=== PATIENT | female | born 1955 | race Caucasian/White ===

== ENCOUNTER → 2017-05-30 | Outpatient (CLI) | payer MEDICARE ==
--- NOTE | 2017-06-02 09:05 | MM ---
Reason for exam: screening (asymptomatic). Last mammogram was performed 1 year and 6 months ago. History: Patient is postmenopausal. Family history of breast cancer in maternal grandmother at age 80. Physical Findings: A clinical breast exam by your physician is recommended on an annual basis and results should be correlated with mammographic findings. MG 3D Screening Mammo W/Cad Bilateral CC and MLO view(s) were taken. Prior study comparison: November 28, 2015, bilateral MG 3d screening mammo w/cad. July 08, 2011, bilateral digital screening mammo w/CAD. The breast tissue is heterogeneously dense. This may lower the sensitivity of mammography. There is a stable round circumscribed right lower inner quadrant mass from 2015 and decreased in size from 2011. No suspicious abnormality. ASSESSMENT: Benign, BI-RAD 2 RECOMMENDATION: Routine screening mammogram of both breasts in 1 year.
== END | disposition home or self-care (01) ==
LOC: RADMAMWWP 12:26
PROVIDERS: ATTEND Family Medicine
DX: Z12.31 Encounter for screening mammogram for malignant neoplasm of breast (principal)
CPT/HCPCS: 77063; 77067

== ENCOUNTER → 2017-08-27 | Outpatient (CLI) | payer MEDICARE ==
--- NOTE | 2017-08-28 08:11 | MR ---
Thoracic spine MRI with and without contrast HISTORY: Mid back pain, G 35 Multiplanar multisequence and postcontrast images obtained through the thoracic spine following 5.5 c c Gadavist IV. Correlation to CT chest 03/16/2013 Thoracic vertebral bodies show preserved height and alignment. Endplate discogenic marrow signal vega ge is present at multiple levels. There is multilevel spondylosis. Loss of disc height signal at inte rvertebral levels is compatible with disc desiccation and degenerative disc disease. There is no sign ificant foraminal encroachment or spinal stenosis, mild multilevel disc bulges are minimal. Thoracic cord signal is normal. There is no abnormal enhancement following contrast administration. IMPRESSION: Mild degenerative disc disease.
== END | disposition home or self-care (01) ==
LOC: RADMRIMAIN 20:42
PROVIDERS: ATTEND Nurse Practitioner Family
DX: M51.34 Other intervertebral disc degeneration, thoracic region (principal); G35 Multiple sclerosis
CPT/HCPCS: 82565; 72157; A9581

== ENCOUNTER 2018-09-06 10:57 | Emergency (ER) | payer MEDICARE ==
[2018-09-06 11:04] VITALS: BP 136/83; PULSE 95; RESP 18; TEMP 97.6
[2018-09-06] MEDS ORDERED: LORazepam 2 MG/ML INJ IV STA (11:43)
[2018-09-06] MEDS ORDERED: SODIUM CHLORIDE 0.9% 500 ML 500 ML IV STA (11:44)
--- NOTE | 2018-09-06 11:55 | ED ---
General Adult HPI - General Chief complaint: Dizziness Stated complaint: facial numbness/lightheaded Time Seen by Provider: 09/06/18 11:00 Source: patient, RN notes reviewed Mode of arrival: wheelchair Limitations: no limitations - History of Present Illness Initial comments: This is a 62-year-old female who presents emergency department with past medical history significant for anxiety. Patient states her boyfriend sleeping on a fishing trip tomorrow for 3 days and ever since she found out about it she has been very anxious. Patient states she's been anxious since Friday she had multiple panic attacks since then today she woke up and felt very dizzy and go she has a history of dizziness and is taking Antivert she thought it was worse and wanted to come and get checked out at the emergency department. Patient also states she's been having some blurred vision of the left eye and she does have a history of MS and has had blurred vision with EMS in the past. Patient states however she did just have eye doctor appointment on Friday. Patient denies any pain anywhere. Patient denies any palpitations patient denies any shortness breath difficulty breathing. Patient has any fever chills. Patient denies any vomiting or diarrhea. Patient denies any dysuria hematuria or frequency. - Related Data Home Medications Medication Instructions Recorded Confirmed Escitalopram [Lexapro] 20 mg PO DAILY 05/05/15 09/06/18 ALPRAZolam [Xanax] 0.25 - 0.5 mg PO BID PRN 09/06/18 09/06/18 ALPRAZolam [Xanax] 0.5 mg PO DAILY 09/06/18 09/06/18 Acetaminophen Tab [Tylenol Tab] 1,000 mg PO SUMO PRN 09/06/18 09/06/18 Ibuprofen [Motrin] 800 mg PO Q6H PRN 09/06/18 09/06/18 Interferon Beta-1A [Avonex 30 MCG 30 mcg IM BENOIT 09/06/18 09/06/18 Pen] Meclizine [Antivert] 25 mg PO DAILY 09/06/18 09/06/18 Ondansetron Odt [Zofran Odt] 4 mg PO Q12HR PRN 09/06/18 09/06/18 Sennosides [Senna] 8.6 mg PO HS 09/06/18 09/06/18 amLODIPine BESYLATE/BENAZEPRIL 1 cap PO HS 09/06/18 09/06/18 [Lotrel 10-40 MG] Allergies Allergy/AdvReac Type Severity Reaction Status Date / Time No Known Allergies Allergy Verified 09/06/18 11:30 Review of Systems ROS Statement: Those systems with pertinent positive or pertinent negative responses have been documented in the HPI. ROS Other: All systems not noted in ROS Statement are negative. Past Medical History Past Medical History: Hypertension, Neurologic Disorder Additional Past Medical History / Comment(s): HTN, MS History of Any Multi-Drug Resistant Organisms: None Reported Past Surgical History: Tonsillectomy Past Psychological History: Anxiety Smoking Status: Current every day smoker Past Alcohol Use History: Rare Past Drug Use History: None Reported General Exam - General Exam Comments Initial Comments: GENERAL: Patient is well-developed and well-nourished. Patient is nontoxic and well- hydrated and is in mild distress. ENT: Neck is soft and supple. No significant lymphadenopathy is noted. Oropharynx is clear. Moist mucous membranes. Neck has full range of motion without eliciting any pain. EYES: The sclera were anicteric and conjunctiva were pink and moist. Extraocular movements were intact and pupils were equal round and reactive to light. Eyelid s were unremarkable. PULMONARY: Unlabored respirations. Good breath sounds bilaterally. No audible rales rhonchi or wheezing was noted. CARDIOVASCULAR: There is a regular rate and rhythm without any murmurs gallops or rubs. ABDOMEN: Soft and nontender with normal bowel sounds. No palpable organomegaly was noted. There is no palpable pulsatile mass. SKIN: Skin is clear with no lesions or rashes and otherwise unremarkable. NEUROLOGIC: Patient is alert and oriented x3. Cranial nerves II through XII are grossly intact. Motor and sensory are also intact. Normal speech, volume and content. Symmetrical smile. MUSCULOSKELETAL: Normal extremities with adequate strength and full range of motion. No lower extremity swelling or edema. No calf tenderness. LYMPHATICS: No significant lymphadenopathy is noted PSYCHIATRIC: Patient is moderately anxious Limitations: no limitations Course Vital Signs 09/06/18 11:00 Temperature 97.6 F Pulse Rate 95 Respiratory 18 Rate Blood Pressure 136/83 O2 Sat by Pulse 98 Oximetry Medical Decision Making - Medical Decision Making EKG shows normal sinus rhythm at 91 bpm MT interval 244 Avelar is 66 QT interval 362 QTC is 445. Patient's EKG shows no ST segment elevation or depression or T wave abnormalities are noted. Chest x-ray shows no acute abnormality - Lab Data Result diagrams: 09/06/18 11:33 09/06/18 11:33 Lab Results 09/06/18 09/06/18 09/06/18 Range/Units 11:33 11:33 12:06 WBC 6.2 (3.8-10.6) k/uL RBC 6.19 H (3.80-5.40) m/uL Hgb 16.3 H (11.4-16.0) gm/dL Hct 51.0 H (34.0-46.0) % MCV 82.4 (80.0-100.0) fL MCH 26.4 (25.0-35.0) pg MCHC 32.0 (31.0-37.0) g/dL RDW 13.5 (11.5-15.5) % Plt Count 253 (150-450) k/uL Neutrophils % 69 % Lymphocytes % 23 % Monocytes % 5 % Eosinophils % 1 % Basophils % 1 % Neutrophils # 4.3 (1.3-7.7) k/uL Lymphocytes # 1.4 (1.0-4.8) k/uL Monocytes # 0.3 (0-1.0) k/uL Eosinophils # 0.0 (0-0.7) k/uL Basophils # 0.1 (0-0.2) k/uL Sodium 140 (137-145) mmol/L Potassium 4.5 (3.5-5.1) mmol/L Chloride 105 (98-107) mmol/L Carbon Dioxide 26 (22-30) mmol/L Anion Gap 9 mmol/L BUN 13 (7-17) mg/dL Creatinine 0.65 (0.52-1.04) mg/dL Est GFR (CKD-EPI)AfAm >90 (>60 ml/min/1.73 sqM) Est GFR (CKD-EPI)NonAf >90 (>60 ml/min/1.73 sqM) Glucose 90 (74-99) mg/dL Calcium 10.0 (8.4-10.2) mg/dL Total Bilirubin 0.5 (0.2-1.3) mg/dL AST 23 (14-36) U/L ALT 20 (9-52) U/L Alkaline Phosphatase 99 (38-126) U/L Total Protein 7.9 (6.3-8.2) g/dL Albumin 4.7 (3.5-5.0) g/dL Urine Color Yellow Urine Appearance Clear (Clear) Urine pH 6.0 (5.0-8.0) Ur Specific [place] 1.012 (1.001-1.035) Urine Protein Negative (Negative) Urine Glucose (UA) Negative (Negative) Urine Ketones Negative (Negative) Urine Blood Negative (Negative) Urine Nitrite Negative (Negative) Urine Bilirubin Negative (Negative) Urine Urobilinogen <2.0 (<2.0) mg/dL Ur Leukocyte Esterase Negative (Negative) Disposition Clinical Impression: Anxiety, Lightheaded Disposition: HOME SELF-CARE Condition: Good Instructions (If sedation given, give patient instructions): Lightheadedness ( ED), Anxiety (ED) Is patient prescribed a controlled substance at d/c from ED?: No Referrals: Mumtaz Armstrong MD [Primary Care Provider] - 1-2 days Time of Disposition: 12:43
[2018-09-06 12:05] LABS: Basophils # (A) 0.1 k/uL (0-0.2); Basophils % (A) 1 %; Eosinophils % (A) 1 %; HGB 16.3 gm/dL (11.4-16.0); Lymphocytes # (A) 1.4 k/uL (1.0-4.8); Lymphocytes % (A) 23 %; MCH 26.4 pg (25.0-35.0); MCV 82.4 fL (80.0-100.0); Mean Platelet Volume 7.9; Monocytes # (A) 0.3 k/uL (0-1.0); Monocytes % (A) 5 %; Neutrophils # (A) 4.3 k/uL (1.3-7.7); Neutrophils % (A) 69 %; Platelet Count 253 k/uL (150-450); RBC 6.19 m/uL (3.80-5.40); RDW 13.5 % (11.5-15.5); WBC 6.2 k/uL (3.8-10.6)
[2018-09-06 12:16] LABS: ALT 20 U/L (9-52); AST 23 U/L (14-36); Albumin 4.7 g/dL (3.5-5.0); Alkaline Phosphatase 99 U/L (38-126); Anion Gap 9 mmol/L; Blood Urea Nitrogen 13 mg/dL (7-17); Carbon Dioxide 26 mmol/L (22-30); Chloride 105 mmol/L (98-107); Glucose 90 mg/dL (74-99); Potassium 4.5 mmol/L (3.5-5.1); Sodium 140 mmol/L (137-145); Total Bilirubin 0.5 mg/dL (0.2-1.3); Total Protein 7.9 g/dL (6.3-8.2)
[2018-09-06 12:16] LABS: Appearance,Urine Clear (Clear); Bilirubin,Urine Negative (Negative); Blood,Urine Negative (Negative); Color,Urine Yellow; Glucose,Urine (UA) Negative (Negative); Ketones,Urine Negative (Negative); Leukocyte Esterase,Urine Negative (Negative); Nitrite,Urine Negative (Negative); Protein,Urine Negative (Negative); Specific Gravity,Urine 1.012 (1.001-1.035); Urobilinogen,Urine <2.0 mg/dL (<2.0)
--- NOTE | 2018-09-06 12:38 | XR ---
EXAMINATION TYPE: XR chest 2V DATE OF EXAM: 09/06/2018 HISTORY: Weakness. REFERENCE: NONE. FINDINGS: The lungs are overinflated but clear. Pleural spaces are clear. The heart is not enlarged. IMPRESSION: COPD.
== END 2018-09-06 14:06 | disposition home or self-care (01) ==
LOC: EC 10:57
DX: F41.9 Anxiety disorder, unspecified (principal); R42 Dizziness and giddiness; J44.9 Chronic obstructive pulmonary disease, unspecified; I10 Essential (primary) hypertension; F17.200 Nicotine dependence, unspecified, uncomplicated; Z79.899 Other long term (current) drug therapy
CPT/HCPCS: 36415; 93005; 80053; 85025; 81003; 71046; 99284; 96374; J2060

== ENCOUNTER 2020-03-06 15:45 | Inpatient (IN) | payer MEDICARE ==
[2020-03-06] MEDS ORDERED: ALBUTEROL NEBULIZED 2.5 MG/3 ML INHALATION STA (16:01)
[2020-03-06] MEDS ORDERED: IPRATROPIUM-ALBUTEROL 3 ML NEB INHALATION STA (16:02)
--- NOTE | 2020-03-06 16:05 | ED ---
General Adult HPI - General Chief complaint: Shortness of Breath Stated complaint: JASON Time Seen by Provider: 03/06/20 15:45 Source: patient, EMS, RN notes reviewed, old records reviewed Mode of arrival: EMS Limitations: no limitations - History of Present Illness Initial comments: This a 64-year-old female presents emergency Department with a past history of COPD. According to EMS the patient was found on the ground quite cyanotic and he immediately put her on BiPAP and she slowly came around and had bilateral diffuse wheezing patient was given 3 albuterol treatments and [address] Patient's also given Solu-Medrol. On arrival patient was feeling considerably better. Patient denies any chest pain or palpitations. Patient denies any recent fever chills or cough per patient denies any abdominal pain. Patient denies any headache. Patient states she does not remember what was going on prior to her being found on the ground. According to EMS it sounded like the patient must at some sort of syncopal episode at some point - Related Data Home Medications Medication Instructions Recorded Confirmed Escitalopram [Lexapro] 20 mg PO DAILY 05/05/15 03/06/20 ALPRAZolam [Xanax] 0.5 mg PO HS PRN 09/06/18 03/06/20 ALPRAZolam [Xanax] 0.5 mg PO TID 09/06/18 03/06/20 Acetaminophen Tab [Tylenol Tab] 1,000 mg PO DAILY PRN 09/06/18 03/06/20 Ibuprofen [Motrin] 800 mg PO Q6H PRN 09/06/18 03/06/20 Meclizine [Antivert] 25 mg PO TID PRN 09/06/18 03/06/20 Ondansetron Odt [Zofran Odt] 4 mg PO Q12HR PRN 09/06/18 03/06/20 amLODIPine BESYLATE/BENAZEPRIL 1 cap PO HS 09/06/18 03/06/20 [Lotrel 10-40 MG] Budesonide/Formoterol Fumarate 1 puff INHALATION RT-BID 03/06/20 03/06/20 [Symbicort 160-4.5 Mcg Inhaler] Furosemide [Lasix] 20 mg PO DAILY 03/06/20 03/06/20 Metoprolol Tartrate [Lopressor] 25 mg PO DAILY 03/06/20 03/06/20 OLANZapine [ZyPREXA] 10 mg PO DAILY 03/06/20 03/06/20 Omeprazole 20 mg PO DAILY 03/06/20 03/06/20 Teriflunomide [Aubagio] 7 mg PO DAILY 03/06/20 03/06/20 Allergies Allergy/AdvReac Type Severity Reaction Status Date / Time No Known Allergies Allergy Verified 09/06/18 11:30 Review of Systems ROS Statement: Those systems with pertinent positive or pertinent negative responses have been documented in the HPI. ROS Other: All systems not noted in ROS Statement are negative. Past Medical History Past Medical History: Hypertension, Neurologic Disorder Additional Past Medical History / Comment(s): HTN, MS History of Any Multi-Drug Resistant Organisms: None Reported Past Surgical History: Tonsillectomy Past Psychological History: Anxiety Smoking Status: Current every day smoker Past Alcohol Use History: Rare Past Drug Use History: None Reported General Exam - General Exam Comments Initial Comments: GENERAL: Patient is well-developed and well-nourished. Patient is nontoxic and well- hydrated and is in mild distress. ENT: Neck is soft and supple. No significant lymphadenopathy is noted. Oropharynx is clear. Moist mucous membranes. Neck has full range of motion without eliciting any pain. EYES: The sclera were anicteric and conjunctiva were pink and moist. Extraocular movements were intact and pupils were equal round and reactive to light. Eyelids were unremarkable. PULMONARY: Diffuse expiratory wheezing CARDIOVASCULAR: There is a regular rate and rhythm without any murmurs gallops or rubs. ABDOMEN: Soft and nontender with normal bowel sounds. SKIN: Skin is clear with no lesions or rashes and otherwise unremarkable. NEUROLOGIC: Patient is alert and oriented x3. Cranial nerves II through XII are grossly intact. Motor and sensory are also intact. Normal speech, volume and content. Symmetrical smile. MUSCULOSKELETAL: Normal extremities with adequate strength and full range of motion. LYMPHATICS: No significant lymphadenopathy is noted PSYCHIATRIC: Normal psychiatric evaluation. Limitations: no limitations Course Vital Signs 03/06/20 03/06/20 03/06/20 15:47 15:52 16:01 Temperature 96.8 F L Pulse Rate 102 H 92 104 H Respiratory 18 20 35 H Rate Blood Pressure 111/70 O2 Sat by Pulse 98 98 Oximetry 03/06/20 03/06/2003/06/20 16:15 16:25 16:52 Temperature Pulse Rate 91 95 Respiratory 22 33 H 20 Rate Blood Pressure 98/74 O2 Sat by Pulse 98 Oximetry Medical Decision Making - Medical Decision Making EKG shows a normal sinus rhythm at 96 bpm W[place] interval is on a 46 QRS is 68 QT interval 344 QTC is 447. Patient's EKG shows no ST segment elevation or depression. Chest x-ray shows no acute abnormality. Patient received 3 treatments of albuterol and Atrovent in the emergency department. Patient improved but she remained on BiPAP. I spoke with Dr. Sung agreed to admit the patient admitted the patient wrote admitting orders. I consult pulmonary. Patient has an elevated lactic acid and I believe it secondary to hypoxia because when EMS found her she was at 60% pulse ox. - Lab Data Result diagrams: 03/06/20 16:10 03/06/20 16:10 Lab Results 03/06/20 03/06/20 03/06/20 Range/Units 16:10 16:10 16:10 WBC 11.8 H (3.8-10.6) k/uL RBC 5.80 H (3.80-5.40) m/uL Hgb 15.5 (11.4-16.0) gm/dL Hct 49.8 H (34.0-46.0) % MCV 85.9 (80.0-100.0) fL MCH 26.7 (25.0-35.0) pg MCHC 31.0 (31.0-37.0) g/dL RDW 14.2 (11.5-15.5) % Plt Count 249 (150-450) k/uL MPV 9.3 Neutrophils % 87 % Lymphocytes % 8 % Monocytes % 2 % Eosinophils % 1 % Basophils % 1 % Neutrophils # 10.2 H (1.3-7.7) k/uL Lymphocytes # 1.0 (1.0-4.8) k/uL Monocytes # 0.3 (0-1.0) k/uL Eosinophils # 0.2 (0-0.7) k/uL Basophils # 0.1 (0-0.2) k/uL PT 9.4 (9.0-12.0) sec INR 0.9 (<1.2) APTT 18.3 L (22.0-30.0) sec Sodium 134 L (137-145) mmol/L Potassium 4.6 (3.5-5.1) mmol/L Chloride 94 L (98-107) mmol/L Carbon Dioxide 25 (22-30) mmol/L Anion Gap 15 mmol/L BUN 18 H (7-17) mg/dL Creatinine 1.67 H (0.52-1.04) mg/dL Est GFR (CKD-EPI)AfAm 37 (>60 ml/min/1.73 sqM) Est GFR (CKD-EPI)NonAf 32 (>60 ml/min/1.73 sqM) Glucose 166 H (74-99) mg/dL Plasma Lactic Acid Alfonso (0.7-2.0) mmol/L Calcium 10.0 (8.4-10.2) mg/dL Magnesium 2.0 (1.6-2.3) mg/dL Total Bilirubin 0.4 (0.2-1.3) mg/dL AST 36 (14-36) U/L ALT 21 (4-34) U/L Alkaline Phosphatase 99 (38-126) U/L Troponin I (0.000-0.034) ng/mL Total Protein 8.9 H (6.3-8.2) g/dL Albumin 4.9 (3.5-5.0) g/dL Coronavirus (PCR) (Not Detectd) 03/06/20 03/06/20 03/06/20 Range/Units 16:10 16:10 17:10 WBC (3.8-10.6) k/uL RBC (3.80-5.40) m/uL Hgb (11.4-16.0) gm/dL Hct (34.0-46.0) % MCV (80.0-100.0) fL MCH (25.0-35.0) pg MCHC (31.0-37.0) g/dL RDW (11.5-15.5) % Plt Count (150-450) k/uL MPV Neutrophils % % Lymphocytes % % Monocytes % % Eosinophils % % Basophils % % Neutrophils # (1.3-7.7) k/uL Lymphocytes # (1.0-4.8) k/uL Monocytes # (0-1.0) k/uL Eosinophils # (0-0.7) k/uL Basophils # (0-0.2) k/uL PT (9.0-12.0) sec INR (<1.2) APTT (22.0-30.0) sec Sodium (137-145) mmol/L Potassium (3.5-5.1) mmol/L Chloride (98-107) mmol/L Carbon Dioxide (22-30) mmol/L Anion Gap mmol/L BUN (7-17) mg/dL Creatinine (0.52-1.04) mg/dL Est GFR (CKD-EPI)AfAm (>60 ml/min/1.73 sqM) Est GFR (CKD-EPI)NonAf (>60 ml/min/1.73 sqM) Glucose (74-99) mg/dL Plasma Lactic Acid Alfonso 4.7 H* (0.7-2.0) mmol/L Calcium (8.4-10.2) mg/dL Magnesium (1.6-2.3) mg/dL Total Bilirubin (0.2-1.3) mg/dL AST (14-36) U/L ALT (4-34) U/L Alkaline Phosphatase (38-126) U/L Troponin I <0.012 (0.000-0.034) ng/mL Total Protein (6.3-8.2) g/dL Albumin (3.5-5.0) g/dL Coronavirus (PCR) Not Detected (Not Detectd) Critical Care Time Critical Care Time: Yes Total Critical Care Time: 35 Disposition Clinical Impression: Acute exacerbation of chronic obstructive pulmonary disease Disposition: ADMITTED IP TO THIS HOSP Referrals: Mumtaz Armstrong MD [Primary Care Provider] - 1-2 days Time of Disposition: 18:02
[2020-03-06 16:19] LABS: Basophils # (A) 0.1 k/uL (0-0.2); Basophils % (A) 1 %; Eosinophils # (A) 0.2 k/uL (0-0.7); Eosinophils % (A) 1 %; HCT 49.8 % (34.0-46.0); HGB 15.5 gm/dL (11.4-16.0); Lymphocytes % (A) 8 %; MCH 26.7 pg (25.0-35.0); MCV 85.9 fL (80.0-100.0); Mean Platelet Volume 9.3; Monocytes # (A) 0.3 k/uL (0-1.0); Monocytes % (A) 2 %; Neutrophils # (A) 10.2 k/uL (1.3-7.7); Neutrophils % (A) 87 %; Platelet Count 249 k/uL (150-450); RDW 14.2 % (11.5-15.5); WBC 11.8 k/uL (3.8-10.6)
[2020-03-06 16:29] LABS: Albumin 4.9 g/dL (3.5-5.0); Potassium 4.6 mmol/L (3.5-5.1); Total Bilirubin 0.4 mg/dL (0.2-1.3); Total Protein 8.9 g/dL (6.3-8.2)
[2020-03-06 16:43] LABS: INR 0.9 (<1.2); Prothrombin Time 9.4 sec (9.0-12.0)
[2020-03-06 16:56] LABS: Partial Thromboplastin Time 18.3 sec (22.0-30.0)
--- NOTE | 2020-03-06 17:27 | XR ---
EXAMINATION TYPE: XR chest 1V portable DATE OF EXAM: 03/06/2020 COMPARISON: Prior chest x-ray 09/06/2018 HISTORY: Difficulty breathing TECHNIQUE: Single frontal view of the chest is obtained. FINDINGS: There is no focal air space opacity, pleural effusion, or pneumothorax seen. The cardiac silhouette size is within normal limits. Patient is rotated. There are overlying cardiac leads. The osseous structures are intact. IMPRESSION: No acute process.
[2020-03-06] MEDS: IPRATROPIUM 0.5 MG/2.5 ML NEBU INHALATION SCH (18:49)
[2020-03-06] MEDS ORDERED: ALPRAZolam 0.5 MG TAB PO STA (18:51)
[2020-03-06] MEDS: NICOTINE 21MG/24HR PATCH TRANSDERM SCH (19:01)
[2020-03-06] MEDS ORDERED: ONDANSETRON ODT 4 MG TAB PO PRN (20:01)
[2020-03-06 21:22] LABS: Appearance,Urine Clear (Clear); Bilirubin,Urine Negative (Negative); Blood,Urine Negative (Negative); Color,Urine Yellow; Glucose,Urine (UA) Negative (Negative); Ketones,Urine Negative (Negative); Leukocyte Esterase,Urine Negative (Negative); Nitrite,Urine Negative (Negative); Protein,Urine Negative (Negative); Specific Gravity,Urine 1.011 (1.001-1.035); Urobilinogen,Urine <2.0 mg/dL (<2.0)
[2020-03-07] MEDS: ALPRAZolam 0.5 MG TAB PO SCH ×4 (00:14→21:24)
[2020-03-07] MEDS: methylPREDNISolone SOD SUCCI 125 MG/2 ML VIAL IV SCH ×3 (00:14→10:53)
[2020-03-07] MEDS: IPRATROPIUM-ALBUTEROL 3 ML NEB INHALATION PRN ×2 (05:12→11:55)
[2020-03-07] MEDS: PANTOPRAZOLE 40 MG TABLET PO SCH (05:23)
--- NOTE | 2020-03-07 07:38 | US ---
EXAMINATION TYPE: US kidneys/renal and bladder DATE OF EXAM: 03/07/2020 COMPARISON: NONE CLINICAL HISTORY: assess for CK D. Abnormal labs EXAM MEASUREMENTS: Right Kidney: 10.1 x 4.4 x 4.5 cm Left Kidney: 10.1 x 4.5 x 4.2 cm Right Kidney: Appeared wnl Left Kidney: Appeared wnl Bladder: wnl Bilateral Jets seen: Only left jet visualized There is no evidence for hydronephrosis at this point in time. No nephrolithiasis is seen. No paxton s are identified. The urinary bladder is anechoic. Bilateral ureteral jets are seen. Cortical medul aurelia differentiation preserved. Cortical thickness preserved. IMPRESSION: No abnormality noted.
[2020-03-07] MEDS ORDERED: SYMBICORT 160-4.5 MCG INHALER INHALATION SCH (08:00)
[2020-03-07] MEDS: IPRATROPIUM 0.5 MG/2.5 ML NEBU INHALATION SCH ×2 (08:10→11:56)
[2020-03-07] MEDS: ESCITALOPRAM 20 MG TAB PO SCH (10:46)
[2020-03-07] MEDS: METOPROLOL TARTRATE 25 MG TAB PO SCH (10:52)
[2020-03-07] MEDS: NICOTINE 21MG/24HR PATCH TRANSDERM SCH (10:53)
[2020-03-07] MEDS: OLANZapine 10 MG TAB PO SCH (10:53)
[2020-03-07] MEDS: BUDESONIDE 1 MG/2 ML NEBU INHALATION SCH ×2 (13:48→20:40)
[2020-03-07] MEDS: FORMOTEROL FUMARATE 20 MCG/2 ML NEBU INHALATION SCH ×2 (13:49→20:40)
[2020-03-07] MEDS: TERIFLUNOMIDE 7 MG PO SCH (13:51)
[2020-03-07] MEDS: ENOXAPARIN 40 MG/0.4 ML SYRINGE SQ SCH (13:58)
[2020-03-07] MEDS: IPRATROPIUM-ALBUTEROL 3 ML NEB INHALATION SCH ×2 (15:49→20:40)
[2020-03-07] MEDS: PRAMIPEXOLE 0.5 MG TAB PO SCH ×2 (16:15→21:24)
[2020-03-07] MEDS ORDERED: INSULIN ASPART (NovoLOG) 100 UNIT/ML VIAL SQ SCH (17:30)
--- NOTE | 2020-03-07 19:21 | P.CNPUL ---
History of Present Illness Reason for consult: dyspnea, cough, hypoxemia Chief complaint: Altered mental status History of present illness: This is a 64-year-old female with advanced multiple sclerosis, patient was brought into the hospital after she was found to be unresponsive on medical floo r he was cyanotic, patient placed back on BiPAP with slow improvement in clinical condition have diffuse wheezing as well continue snaps treatment was given in the emergency department, subsequently admitted to the floor, patient was evaluated on medical floor she was currently 5 L oxygen she feels that she is back to baseline, denies any chest pain shortness of breath does have some cough, BiPAP is off, data as up been obtained from the patient that she was smoking in the garage according to her 5 cigarettes were smoked after that she went inside the room and passed out, EMS were notified and brought into hospital for further evaluation, her past history significant for multiple sclerosis m ajor depression anxiety disorder, likely severe COPD, hypertension hypertensive cardiovascular disease, she smokes 1-1/2 pack per day every day Review of Systems All systems: negative Past Medical History Past Medical History: Hypertension, Neurologic Disorder Additional Past Medical History / Comment(s): HTN, MS History of Any Multi-Drug Resistant Organisms: None Reported Past Surgical History: Tonsillectomy Past Psychological History: Anxiety Smoking Status: Current every day smoker Past Alcohol Use History: Rare Past Drug Use History: None Reported Medications and Allergies Home Medications Medication Instructions Recorded Confirmed Type Escitalopram [Lexapro] 20 mg PO DAILY 05/05/15 03/06/20 History ALPRAZolam [Xanax] 0.5 mg PO HS PRN 09/06/18 03/06/20 History ALPRAZolam [Xanax] 0.5 mg PO TID 09/06/18 03/06/20 History Acetaminophen Tab [Tylenol Tab] 1,000 mg PO DAILY PRN 09/06/18 03/06/20 History Ibuprofen [Motrin] 800 mg PO Q6H PRN 09/06/18 03/06/20 History Meclizine [Antivert] 25 mg PO TID PRN 09/06/18 03/06/20 History Ondansetron Odt [Zofran Odt] 4 mg PO Q12HR PRN 09/06/18 03/06/20 History amLODIPine BESYLATE/BENAZEPRIL 1 cap PO HS 09/06/18 03/06/20 History [Lotrel 10-40 MG] Budesonide/Formoterol Fumarate 1 puff INHALATION RT-BID 03/06/20 03/06/20 History [Symbicort 160-4.5 Mcg Inhaler] Furosemide [Lasix] 20 mg PO DAILY 03/06/20 03/06/20 History Metoprolol Tartrate [Lopressor] 25 mg PO DAILY 03/06/20 03/06/20 History OLANZapine [ZyPREXA] 10 mg PO DAILY 03/06/20 03/06/20 History Omeprazole 20 mg PO DAILY 03/06/20 03/06/20 History Teriflunomide [Aubagio] 7 mg PO DAILY 03/06/20 03/06/20 History Allergies Allergy/AdvReac Type Severity Reaction Status Date / Time No Known Allergies Allergy Verified 09/06/18 11:30 Physical Exam Vitals: Vital Signs Temp Pulse Pulse Resp BP BP Pulse Ox 03/07/20 16:07 88 03/07/20 15:52 92 03/07/20 15:31 97.8 F 90 18 110/75 90 L 03/07/20 12:06 87 03/07/20 12:00 84 19 118/70 94 L 03/07/20 11:56 86 03/07/20 08:28 96 03/07/20 08:11 91 03/07/20 08:00 75 18 102/67 95 03/07/20 07:01 18 98 03/07/20 06:30 18 98 03/07/20 05:21 104 H 03/07/20 05:14 96 03/07/20 04:00 98.1 F 96 18 95 03/07/20 02:00 20 03/07/20 01:32 98.0 F 95 20 123/79 93 L 03/06/20 20:00 98 18 93/59 93 L Intake and Output 03/07/20 03/07/20 03/07/20 06:59 14:59 22:59 Intake Total 250 10 Balance 250 10 Intake: IV 10 Invasive Line 1 10 Oral 250 Other: Voiding Method Toilet # Voids 0 0 # Bowel Movements 0 Weight 67.132 kg - Constitutional General appearance: average body habitus, cooperative, disheveled, mild distress - EENT Eyes: EOMI, PERRLA Ears: bilateral: normal - Neck Neck: normal ROM Carotids: bilateral: upstroke normal Thyroid: bilateral: normal size - Respiratory Respiratory: bilateral: diminished - Cardiovascular Rhythm: regular Heart sounds: normal: S1, S2 - Gastrointestinal General gastrointestinal: normal bowel sounds, soft - Integumentary Integumentary: decreased turgor, flushed - Neurologic Neurologic: CNII-XII intact - Musculoskeletal Musculoskeletal: gait normal, generalized weakness - Psychiatric Psychiatric: A&O x's 3, appropriate affect, intact judgment & insight Results - Laboratory Findings CBC and BMP: 03/06/20 16:10 03/06/20 16:10 PT/INR, D-dimer PT 9.4 sec (9.0-12.0) 03/06/20 16:10 INR 0.9 (<1.2) 03/06/20 16:10 Abnormal lab findings: Abnormal Labs 03/06/20 03/06/20 03/06/20 16:10 16:10 16:10 WBC 11.8 H RBC 5.80 H Hct 49.8 H Neutrophils # 10.2 H APTT 18.3 L Sodium 134 L Chloride 94 L BUN 18 H Creatinine 1.67 H Glucose 166 H Plasma Lactic Acid Alfonso Total Protein 8.9 H 03/06/20 03/06/20 16:10 18:58 WBC RBC Hct Neutrophils # APTT Sodium Chloride BUN Creatinine Glucose Plasma Lactic Acid Alfonso 4.7 H* 2.2 H* Total Protein - Diagnostic Findings Chest x-ray: report reviewed (Finding as noted above no acute processes identified), image reviewed Assessment and Plan Assessment: Altered mental status Suspect carbon monoxide poisoning Severe COPD with possible exacerbation History of multiple sclerosis Generalized anxiety disorder Activities smoker one had a half pack per day Plan: Continue oxygen as we will attempt to wean it down slowly in next 12-24 hours Continue bronchodilators monitor observe patient off of steroids antibiotics Patient will need smoking cessation counseling and advice also education about carbon monoxide poisoning Further workup and evaluation pending as per clinical response of the patient Time with Patient: Greater than 30
--- NOTE | 2020-03-07 22:42 | P.HPIM ---
History of Present Illness H&P Date: 03/07/20 Chief Complaint: Short of breath History of presenting complaint: This is a pleasant 64-year-old patient of visiting physicians Dr. Armstrong. Chronic stable medical conditions include hypertension, multiple sclerosis, anxiety depression, hypertension, urinary incontinence. Long-standing smoker. Daughter is at the bedside. Last 2-3 days patient had getting increasingly sh ort of breath. Increasing wheezing. And out of the house to smoke today came back, and the last she remembers sitting on the sofa. She was found on the carpeted floor. She is very cyanotic and hypoxic and as per the EMS pulse ox was 60%. Patient put on a BiPAP in the ER and patient recovered. And after bronchodilators feeling better. Still wheezing. Has not followed with any doctor. No seizure activity was reported. No chest pain. Review of systems: GEN.: Tired EYES: None HEENT: None NECK: None RESPIRATORY: As above CARDIOVASCULAR: None GASTROINTESTINAL: None GENITOURINARY: Urinary incontinence MUSCULOSKELETAL: Joint pains LYMPHATICS: None HEMATOLOGICAL: None PSYCHIATRY: Anxious NEUROLOGICAL: None Past medical history to include: Multiple sclerosis, anxiety, depression, COPD, hypertension, urinary incontinence Social history: Smokes a pack and a half a day for about 49 years. No alcohol. Lives with her boyfriend Physical examination: VITAL SIGNS: 96.8, 1 or 2, 35, 111/70, 98% on BiPAP upon presentation GENERAL: BMI 27.1, propped up in bed, short of breath. EYES: Pupils equal. Conjunctiva normal. HEENT: External appearance of nose and ears normal, oral cavity grossly normal. NECK: JVD not raised; masses not palpable. HEART: First and second heart sounds are normal; no edema. LUNGS: Respiratory rate increased, diminished breath sound prominent expiration and wheezing. ABDOMEN: Soft, nontender, liver spleen not palpable, no masses palpable. PSYCH: [Alert and oriented x3; mood and affect anxious l. NEUROLOGICAL: Cranial nerves grossly intact; no facial asymmetry, power and sensation grossly intact. LYMPHATICS: No lymph nodes palpable in the axilla and neck INVESTIGATIONS, reviewed in the clinical context: White count 11.8 hemoglobin 15.5 platelets 249 potassium 4.6 bun 18 creatinine 1.67 Lactic acid 4.7 Troponin I less than 0.012 Coronavirus P/Cr-not detected EKG tracing personally reviewed by me-normal sinus rhythm, P pulmonale Chest x-ray film personally reviewed by me-no obvious infiltrate. Prominent pulmonary artery Assessment: -Acute severe COPD exacerbation in a current smoker -Acute hypoxic, suspect hypercapnic respiratory failure, POA -Acute metabolic encephalopathy from CO2 narcosis likely on presentation -Chronic nicotine dependence patient active cigarette smoker -Essential hypertension -Chronic urinary incontinence -Anxiety depression not otherwise specified -Abnormal kidney function, rule out the chronic component Plan: Patient be started on nebulized bronchodilators, inhaled and IV steroids. Home medications resumed. DVT prophylaxis. Oxygen 2 toscale down. Pulmonary been consulted. Care was discussed at length with the patient and the daughter the bedside. Smoke cessation counseling: This was done with the patient. Nicotine patch is being given. More than 3 minutes was spent for this Past Medical History Past Medical History: Hypertension, Neurologic Disorder Additional Past Medical History / Comment(s): HTN, MS History of Any Multi-Drug Resistant Organisms: None Reported Past Surgical History: Tonsillectomy Past Psychological History: Anxiety Smoking Status: Current every day smoker Past Alcohol Use History: Rare Past Drug Use History: None Reported Medications and Allergies Home Medications Medication Instructions Recorded Confirmed Type Escitalopram [Lexapro] 20 mg PO DAILY 05/05/15 03/06/20 History ALPRAZolam [Xanax] 0.5 mg PO HS PRN 09/06/18 03/06/20 History ALPRAZolam [Xanax] 0.5 mg PO TID 09/06/18 03/06/20 History Acetaminophen Tab [Tylenol Tab] 1,000 mg PO DAILY PRN 09/06/18 03/06/20 History Ibuprofen [Motrin] 800 mg PO Q6H PRN 09/06/18 03/06/20 History Meclizine [Antivert] 25 mg PO TID PRN 09/06/18 03/06/20 History Ondansetron Odt [Zofran Odt] 4 mg PO Q12HR PRN 09/06/18 03/06/20 History amLODIPine BESYLATE/BENAZEPRIL 1 cap PO HS 09/06/18 03/06/20 History [Lotrel 10-40 MG] Budesonide/Formoterol Fumarate 1 puff INHALATION RT-BID 03/06/20 03/06/20 History [Symbicort 160-4.5 Mcg Inhaler] Furosemide [Lasix] 20 mg PO DAILY 03/06/20 03/06/20 History Metoprolol Tartrate [Lopressor] 25 mg PO DAILY 03/06/20 03/06/20 History OLANZapine [ZyPREXA] 10 mg PO DAILY 03/06/20 03/06/20 History Omeprazole 20 mg PO DAILY 03/06/20 03/06/20 History Teriflunomide [Aubagio] 7 mg PO DAILY 03/06/20 03/06/20 History Allergies Allergy/AdvReac Type Severity Reaction Status Date / Time No Known Allergies Allergy Verified 09/06/18 11:30 Physical Exam Vitals: Vital Signs Temp Pulse Pulse Resp BP BP Pulse Ox 03/07/20 08:28 96 03/07/20 08:11 91 03/07/20 07:01 18 98 03/07/20 06:30 18 98 03/07/20 05:21 104 H 03/07/20 05:14 96 03/07/20 04:00 98.1 F 96 18 95 03/07/20 02:00 20 03/07/20 01:32 98.0 F 95 20 123/79 93 L 03/06/20 20:00 98 18 93/59 93 L 03/06/20 19:01 94 31 H 03/06/20 19:00 94 22 98 03/06/20 18:49 97 32 H 03/06/20 18:00 96 20 100/71 98 03/06/20 17:00 93 20 106/59 98 03/06/20 16:52 95 20 98/74 98 03/06/20 16:25 91 33 H 03/06/20 16:15 22 03/06/20 16:01 104 H 35 H 03/06/20 15:52 92 20 98 03/06/20 15:47 96.8 F L 102 H 18 111/70 98 Intake and Output 03/06/20 03/07/20 03/07/20 22:59 06:59 14:59 Intake Total 250 Balance 250 Intake: Oral 250 Other: Voiding Method Toilet # Voids 0 Weight 67.132 kg 67.132 kg Results CBC & Chem 7: 03/06/20 16:10 03/06/20 16:10 Labs: Abnormal Lab Results - Last 24 Hours (Table) 03/06/20 03/06/20 03/06/20 Range/Units 16:10 16:10 16:10 WBC 11.8 H (3.8-10.6) k/uL RBC 5.80 H (3.80-5.40) m/uL Hct 49.8 H (34.0-46.0) % Neutrophils # 10.2 H (1.3-7.7) k/uL APTT 18.3 L (22.0-30.0) sec Sodium 134 L (137-145) mmol/L Chloride 94 L (98-107) mmol/L BUN 18 H (7-17) mg/dL Creatinine 1.67 H (0.52-1.04) mg/dL Glucose 166 H (74-99) mg/dL Plasma Lactic Acid Alfonso (0.7-2.0) mmol/L Total Protein 8.9 H (6.3-8.2) g/dL 03/06/20 03/06/20 Range/Units 16:10 18:58 WBC (3.8-10.6) k/uL RBC (3.80-5.40) m/uL Hct (34.0-46.0) % Neutrophils # (1.3-7.7) k/uL APTT (22.0-30.0) sec Sodium (137-145) mmol/L Chloride (98-107) mmol/L BUN (7-17) mg/dL Creatinine (0.52-1.04) mg/dL Glucose (74-99) mg/dL Plasma Lactic Acid Alfonso 4.7 H* 2.2 H* (0.7-2.0) mmol/L Total Protein (6.3-8.2) g/dL Thrombosis Risk Factor Assmnt - Choose All That Apply Each Risk Factor Represents 2 Points: Age 61-74 years Thrombosis Risk Factor Assessment Total Risk Factor Score: 2 Thrombosis Risk Factor Assessment Level: Low Risk
[2020-03-08] MEDS: IPRATROPIUM-ALBUTEROL 3 ML NEB INHALATION SCH ×6 (00:30→20:43)
[2020-03-08] MEDS: ALPRAZolam 0.5 MG TAB PO PRN (03:21)
[2020-03-08] MEDS: PANTOPRAZOLE 40 MG TABLET PO SCH (06:36)
[2020-03-08] MEDS: BUDESONIDE 1 MG/2 ML NEBU INHALATION SCH ×2 (08:43→20:41)
[2020-03-08] MEDS: FORMOTEROL FUMARATE 20 MCG/2 ML NEBU INHALATION SCH ×2 (08:43→20:41)
[2020-03-08] MEDS: TERIFLUNOMIDE 7 MG PO SCH (09:54)
[2020-03-08] MEDS: PRAMIPEXOLE 0.5 MG TAB PO SCH ×2 (09:57→21:03)
[2020-03-08] MEDS: OLANZapine 10 MG TAB PO SCH (09:57)
[2020-03-08] MEDS: METOPROLOL TARTRATE 25 MG TAB PO SCH (09:57)
[2020-03-08] MEDS: ALPRAZolam 0.5 MG TAB PO SCH ×3 (09:57→21:03)
[2020-03-08] MEDS: NICOTINE 21MG/24HR PATCH TRANSDERM SCH (09:57)
[2020-03-08] MEDS: ENOXAPARIN 40 MG/0.4 ML SYRINGE SQ SCH (09:57)
[2020-03-08] MEDS: ESCITALOPRAM 20 MG TAB PO SCH (09:57)
--- NOTE | 2020-03-08 10:56 | P.PN ---
Subjective Progress Note Date: 03/08/20 Principal diagnosis: Altered mental status Suspect carbon monoxide poisoning Severe COPD with possible exacerbation History of multiple sclerosis Generalized anxiety disorder Activities smoker one had a half pack per day 03/08/2020, patient is awake and alert sitting upright in the bed breathing comfortably remains on 5 L oxygen, denies any chest pain denies any cough or sputum production, scans were daughter at length about sequence of events are slightly disorder breathing and COPD with the risk of exposure to carbon monoxide and to minimize the risk as well This is a 64-year-old female with advanced multiple sclerosis, patient was brought into the hospital after she was found to be unresponsive on medical floor he was cyanotic, patient placed back on BiPAP with slow improvement in clinical condition have diffuse wheezing as well continue snaps treatment was given in the emergency department, subsequently admitted to the floor, patient was evaluated on medical floor she was currently 5 L oxygen she feels that she is back to baseline, denies any chest pain shortness of breath does have some cough, BiPAP is off, data as up been obtained from the patient that she was smoking in the garage according to her 5 cigarettes were smoked after that she went inside the room and passed out, EMS were notified and brought into hospital for further evaluation, her past history significant for multiple sclerosis major depression anxiety disorder, likely severe COPD, hypertension hypertensive cardiovascular disease, she smokes 1-1/2 pack per day every day Objective - Vital Signs Vital signs: Vital Signs Temp 98.0 F 03/08/20 00:00 Pulse 100 03/08/20 09:12 Resp 17 03/08/20 03:52 BP 138/80 03/08/20 03:52 Pulse Ox 91 L 03/08/20 03:52 Intake & Output 03/07/20 03/08/20 03/08/20 18:59 06:59 18:59 Intake Total 10 480 120 Output Total 300 600 Balance -290 -120 120 Weight 64 kg Intake: IV 10 Invasive Line 1 10 Oral 480 120 Output: Urine 300 600 Other: Voiding Method Toilet Diaper # Voids 2 1 # Bowel Movements 0 0 - Exam - Constitutional General appearance: average body habitus, cooperative, disheveled, mild distress - EENT Eyes: EOMI, PERRLA Ears: bilateral: normal - Neck Neck: normal ROM Carotids: bilateral: upstroke normal Thyroid: bilateral: normal size - Respiratory Respiratory: bilateral: diminished - Cardiovascular Rhythm: regular Heart sounds: normal: S1, S2 - Gastrointestinal General gastrointestinal: normal bowel sounds, soft - Integumentary Integumentary: decreased turgor, flushed - Neurologic Neurologic: CNII-XII intact - Musculoskeletal Musculoskeletal: gait normal, generalized weakness - Psychiatric Psychiatric: A&O x's 3, appropriate affect, intact judgment & insight - Labs CBC & Chem 7: 03/06/20 16:10 03/06/20 16:10 Assessment and Plan Assessment: Altered mental status Suspect carbon monoxide poisoning Severe COPD with possible exacerbation History of multiple sclerosis Generalized anxiety disorder Activities smoker one had a half pack per day Plan: Continue oxygen as we will attempt to wean it down slowly to room air Continue bronchodilators monitor observe patient off of steroids antibiotics smoking cessation counseling and advice also education about carbon monoxide poisoning also discussed with daughter at length Further workup and evaluation pending as per clinical response of the patient Time with Patient: Greater than 30
--- NOTE | 2020-03-08 20:02 | P.PN ---
Progress Note - Text Progress Note Date: 03/08/20 Chief Complaint: Short of breath History of presenting complaint: This is a pleasant 64-year-old patient of visiting physicians Dr. Armstrong. Chronic stable medical conditions include hypertension, multiple sclerosis, anxiety depression, hypertension, urinary incontinence. Long-standing smoker. Daughter is at the bedside. Last 2-3 days patient had getting increasingly short of breath. Increasing wheezing. And out of the house to smoke today came back, and the last she remembers sitting on the sofa. She was found on the carpeted floor. She is very cyanotic and hypoxic and as per the EMS pulse ox was 60%. Patient put on a BiPAP in the ER and patient recovered. And after bronchodilators feeling better. Still wheezing. Has not followed with any doctor. No seizure activity was reported. No chest pain. Admitted with-acute COPD exacerbation, acute hypoxic and hypercapnic respiratory failure, acute metabolic encephalopathy from above. Started on bronchodilators, steroids. Today-some improvement in short of breath and wheezing. Eating some food. Sl ight cough. Tired Review of systems: Was done for constitutional, cardiovascular, GI, pulmonary. relevant finding as above Active Medications Albuterol/Ipratropium (Ipratropium-Albuterol 3 Ml Neb) 3 ml INHALATION RT-Q4H PRN PRN Reason: Shortness Of Breath Or Wheezing Last Admin: 03/07/20 11:55 Dose: 3 ml Documented by: Albuterol/Ipratropium (Ipratropium-Albuterol 3 Ml Neb) 3 ml INHALATION RT-Q4H [facility] Last Admin: 03/08/20 15:59 Dose: 3 ml Documented by: Alprazolam (Alprazolam 0.5 Mg Tab) 0.5 mg PO HS PRN PRN Reason: Insomnia Last Admin: 03/08/20 03:21 Dose: 0.5 mg Documented by: Alprazolam (Alprazolam 0.5 Mg Tab) 0.5 mg PO TID [facility] Last Admin: 03/08/20 17:03 Dose: 0.5 mg Documented by: Budesonide (Budesonide 1 Mg/2 Ml Nebu) 1 mg INHALATION RT-BID [facility] Last Admin: 03/08/20 08:43 Dose: 1 mg Documented by: Enoxaparin Sodium (Enoxaparin 40 Mg/0.4 Ml Syringe) 40 mg SQ DAILY [facility] Last Admin: 03/08/20 09:57 Dose: 40 mg Documented by: Escitalopram Oxalate (Escitalopram 20 Mg Tab) 20 mg PO DAILY [facility] Last Admin: 03/08/20 09:57 Dose: 20 mg Documented by: Formoterol Fumarate (Formoterol Fumarate 20 Mcg/2 Ml Nebu) 20 mcg INHALATION R T-BID [facility] Last Admin: 03/08/20 08:43 Dose: 20 mcg Documented by: Metoprolol Tartrate (Metoprolol Tartrate 25 Mg Tab) 25 mg PO DAILY [facility] Last Admin: 03/08/20 09:57 Dose: 25 mg Documented by: Nicotine (Nicotine 21mg/24hr Patch) 1 patch TRANSDERM DAILY [facility] Last Admin: 03/08/20 09:57 Dose: 1 patch Documented by: Patient's Own ( Teriflunomide [ Aubagio] 7 Mg Tablet ) 7 mg PO DAILY [facility] Last Admin: 03/08/20 09:54 Dose: Not Given Documented by: Olanzapine (Olanzapine 10 Mg Tab) 10 mg PO DAILY [facility] Last Admin: 03/08/20 09:57 Dose: 10 mg Documented by: Ondansetron HCl (Ondansetron Odt 4 Mg Tab) 4 mg PO Q12HR PRN PRN Reason: Nausea Pantoprazole Sodium (Pantoprazole 40 Mg Tablet) 40 mg PO AC-BRKFST [facility] Last Admin: 03/08/20 06:36 Dose: 40 mg Documented by: Pramipexole Dihydrochloride (Pramipexole 0.5 Mg Tab) 0.5 mg PO BID [facility] Last Admin: 03/08/20 09:57 Dose: 0.5 mg Documented by: Physical examination: VITAL SIGNS: 98.4, 100, 20, 109/68, 91% on 5 L GENERAL: Sitting up in bed, that short of breath EYES: Pupils equal. Conjunctiva normal. NECK: JVD not raised; masses not palpable. HEART: First and second heart sounds are normal; no edema. LUNGS: Respiratory rate increased, diminished breath sound prominent expiration -less wheezing. ABDOMEN: Soft, nontender, liver spleen not palpable, no masses palpable. PSYCH: [Alert and oriented x3; mood and affect anxious . INVESTIGATIONS, reviewed in the clinical context: White count 11.8 hemoglobin 15.5 platelets 249 potassium 4.6 bun 18 creatinine 1.67 Lactic acid 4.7 Troponin I less than 0.012 Coronavirus P/Cr-not detected EKG tracing personally reviewed by me-normal sinus rhythm, P pulmonale Chest x-ray film personally reviewed by me-no obvious infiltrate. Prominent pulmonary artery Assessment: -Acute severe COPD exacerbation in a current smoker-slow to respond -Acute hypoxic, suspect hypercapnic respiratory failure, POA -Acute metabolic encephalopathy from CO2 narcosis likely on presentation- resolved -Chronic nicotine dependence patient active cigarette smoker -Essential hypertension -Chronic urinary incontinence -Anxiety depression not otherwise specified -Restless leg syndrome started on Mirapex -Abnormal kidney function, rule out the chronic component Plan: Continue nebulized bronchodilators, inhaled and IV steroids. Care was discussed with the patient. Encouraged to sit up in a chair. Repeat labs in the morning.
[2020-03-09] MEDS: IPRATROPIUM-ALBUTEROL 3 ML NEB INHALATION SCH ×6 (00:03→19:42)
[2020-03-09] MEDS: PANTOPRAZOLE 40 MG TABLET PO SCH (06:45)
[2020-03-09] MEDS: FORMOTEROL FUMARATE 20 MCG/2 ML NEBU INHALATION SCH ×2 (08:36→19:42)
[2020-03-09] MEDS: BUDESONIDE 1 MG/2 ML NEBU INHALATION SCH ×2 (08:37→19:42)
[2020-03-09] MEDS: PRAMIPEXOLE 0.5 MG TAB PO SCH ×2 (08:58→20:48)
[2020-03-09] MEDS: METOPROLOL TARTRATE 25 MG TAB PO SCH (08:58)
[2020-03-09] MEDS: ALPRAZolam 0.5 MG TAB PO SCH ×3 (08:58→20:47)
[2020-03-09] MEDS: NICOTINE 21MG/24HR PATCH TRANSDERM SCH (08:58)
[2020-03-09] MEDS: OLANZapine 10 MG TAB PO SCH (08:58)
[2020-03-09] MEDS: ENOXAPARIN 40 MG/0.4 ML SYRINGE SQ SCH (08:58)
[2020-03-09] MEDS: ESCITALOPRAM 20 MG TAB PO SCH (08:58)
[2020-03-09] MEDS: TERIFLUNOMIDE 7 MG PO SCH (08:59)
--- NOTE | 2020-03-09 10:55 | P.PN ---
Subjective Progress Note Date: 03/09/20 Principal diagnosis: Altered mental status Suspect carbon monoxide poisoning Severe COPD with possible exacerbation History of multiple sclerosis Generalized anxiety disorder Activities smoker one had a half pack per day 03/09/2020, patient seen eval examined during the rounds labs reviewed medications reviewed care plan discussed, patient is undergoing physical therapy and rehab, is on 5 L oxygen, no chest pain is present awake and alert breathing comfortably, noted that oxygen saturation were lower now compared to before as yesterday patient was on 5 L saturation is 96% today came down to 90% discussed with RN will try to taper down oxygen with frequently monitor oxygen saturation 03/08/2020, patient is awake and alert sitting upright in the bed breathing comfortably remains on 5 L oxygen, denies any chest pain denies any cough or sputum production, scans were daughter at length about sequence of events are slightly disorder breathing and COPD with the risk of exposure to carbon monoxide and to minimize the risk as well This is a 64-year-old female with advanced multiple sclerosis, patient was brought into the hospital after she was found to be unresponsive on medical floor he was cyanotic, patient placed back on BiPAP with slow improvement in clinical condition have diffuse wheezing as well continue snaps treatment was given in the emergency department, subsequently admitted to the floor, patient was evaluated on medical floor she was currently 5 L oxygen she feels that she is back to baseline, denies any chest pain shortness of breath does have some cough, BiPAP is off, data as up been obtained from the patient that she was smoking in the garage according to her 5 cigarettes were smoked after that she went inside the room and passed out, EMS were notified and brought into hospital for further evaluation, her past history significant for multiple sclerosis major depression anxiety disorder, likely severe COPD, hypertension hypertensive cardiovascular disease, she smokes 1-1/2 pack per day every day Objective - Vital Signs Vital signs: Vital Signs Temp 97.7 F 03/08/20 20:00 Pulse 100 03/09/20 09:00 Resp 20 03/09/20 04:00 BP 134/77 03/09/20 04:00 Pulse Ox 90 L 03/09/20 04:00 Intake & Output 03/08/20 03/09/20 03/09/20 18:59 06:59 18:59 Intake Total 596 120 Balance 596 120 Weight 120 kg Intake: Oral 596 120 Other: Voiding Method Bedside Commode Diaper # Voids 2 2 - Exam - Constitutional General appearance: average body habitus, cooperative, disheveled, mild distress - EENT Eyes: EOMI, PERRLA Ears: bilateral: normal - Neck Neck: normal ROM Carotids: bilateral: upstroke normal Thyroid: bilateral: normal size - Respiratory Respiratory: bilateral: diminished - Cardiovascular Rhythm: regular Heart sounds: normal: S1, S2 - Gastrointestinal General gastrointestinal: normal bowel sounds, soft - Integumentary Integumentary: decreased turgor, flushed - Neurologic Neurologic: CNII-XII intact - Musculoskeletal Musculoskeletal: gait normal, generalized weakness - Psychiatric Psychiatric: A&O x's 3, appropriate affect, intact judgment & insight - Labs CBC & Chem 7: 03/06/20 16:10 03/06/20 16:10 Assessment and Plan Assessment: Altered mental status carbon monoxide poisoning Severe COPD with possible exacerbation History of multiple sclerosis Generalized anxiety disorder Activities smoker one had a half pack per day Plan: Continue oxygen as we will attempt to wean it down slowly to room air, may need to get a radiographic imaging of the chest in case if unable to taper down the oxygen Continue bronchodilators monitor observe patient off of steroids antibiotics smoking cessation counseling and advice also education about carbon monoxide poi soning also discussed with daughter at length Further workup and evaluation pending as per clinical response of the patient Time with Patient: Greater than 30
[2020-03-09 11:18] LABS: Calcium 9.3 mg/dL (8.4-10.2); Potassium 3.9 mmol/L (3.5-5.1)
[2020-03-09 15:01] LABS: HCT 40.7 % (34.0-46.0); HGB 13.4 gm/dL (11.4-16.0); MCH 27.3 pg (25.0-35.0); MCHC 32.9 g/dL (31.0-37.0); MCV 83.1 fL (80.0-100.0); Mean Platelet Volume 8.8; Platelet Count 185 k/uL (150-450); RDW 14.3 % (11.5-15.5); WBC 7.5 k/uL (3.8-10.6)
--- NOTE | 2020-03-09 20:01 | P.PN ---
Progress Note - Text Progress Note Date: 03/09/20 Chief Complaint: Short of breath History of presenting complaint: This is a pleasant 64-year-old patient of visiting physicians Dr. Armstrong. Chronic stable medical conditions include hypertension, multiple sclerosis, anxiety depression, hypertension, urinary incontinence. Long-standing smoker. Daughter is at the bedside. Last 2-3 days patient had getting increasingly short of breath. Increasing wheezing. And out of the house to smoke today came back, and the last she remembers sitting on the sofa. She was found on the carpeted floor. She is very cyanotic and hypoxic and as per the EMS pulse ox was 60%. Patient put on a BiPAP in the ER and patient recovered. And after bronchodilators feeling better. Still wheezing. Has not followed with any doctor. No seizure activity was reported. No chest pain. Admitted with-acute COPD exacerbation, acute hypoxic and hypercapnic respiratory failure, acute metabolic encephalopathy from above. Started on bronchodilators, steroids. Today-Some improvement in shortness of breath wheezing. Still still having so me. Has been out of bed. Oral intake fair Review of systems: Was done for constitutional, cardiovascular, GI, pulmonary. relevant finding as above Active Medications Albuterol/Ipratropium (Ipratropium-Albuterol 3 Ml Neb) 3 ml INHALATION RT-Q4H PRN PRN Reason: Shortness Of Breath Or Wheezing Last Admin: 03/07/20 11:55 Dose: 3 ml Documented by: Albuterol/Ipratropium (Ipratropium-Albuterol 3 Ml Neb) 3 ml INHALATION RT-Q4H [facility] Last Admin: 03/09/20 19:42 Dose: 3 ml Documented by: Alprazolam (Alprazolam 0.5 Mg Tab) 0.5 mg PO HS PRN PRN Reason: Insomnia Last Admin: 03/08/20 03:21 Dose: 0.5 mg Documented by: Alprazolam (Alprazolam 0.5 Mg Tab) 0.5 mg PO TID [facility] Last Admin: 03/09/20 17:09 Dose: 0.5 mg Documented by: Budesonide (Budesonide 1 Mg/2 Ml Nebu) 1 mg INHALATION RT-BID [facility] Last Admin: 03/09/20 19:42 Dose: 1 mg Documented by: Docusate Sodium (Docusate 100 Mg Cap) 100 mg PO DAILY [facility] Enoxaparin Sodium (Enoxaparin 40 Mg/0.4 Ml Syringe) 40 mg SQ DAILY [facility] Last Admin: 03/09/20 08:58 Dose: 40 mg Documented by: Escitalopram Oxalate (Escitalopram 20 Mg Tab) 20 mg PO DAILY [facility] Last Admin: 03/09/20 08:58 Dose: 20 mg Documented by: Formoterol Fumarate (Formoterol Fumarate 20 Mcg/2 Ml Nebu) 20 mcg INHALATION RT-BID [facility] Last Admin: 03/09/20 19:42 Dose: 20 mcg Documented by: Metoprolol Tartrate (Metoprolol Tartrate 25 Mg Tab) 25 mg PO DAILY [facility] Last Admin: 03/09/20 08:58 Dose: 25 mg Documented by: Nicotine (Nicotine 21mg/24hr Patch) 1 patch TRANSDERM DAILY [facility] Last Admin: 03/09/20 08:58 Dose: 1 patch Documented by: Olanzapine (Olanzapine 10 Mg Tab) 10 mg PO DAILY [facility] Last Admin: 03/09/20 08:58 Dose: 10 mg Documented by: Ondansetron HCl (Ondansetron Odt 4 Mg Tab) 4 mg PO Q12HR PRN PRN Reason: Nausea Pantoprazole Sodium (Pantoprazole 40 Mg Tablet) 40 mg PO AC-BRKFST [facility] Last Admin: 03/09/20 06:45 Dose: 40 mg Documented by: Pramipexole Dihydrochloride (Pramipexole 0.5 Mg Tab) 0.5 mg PO BID [facility] Last Admin: 03/09/20 08:58 Dose: 0.5 mg Documented by: Physical examination: VITAL SIGNS: 98.3, 84, 20, 100/67, 89% on 5 L GENERAL: Sitting up in bed, some short of breath EYES: Pupils equal. Conjunctiva normal. NECK: JVD not raised; masses not palpable. HEART: First and second heart sounds are normal; no edema. LUNGS: Respiratory rate increased, diminished breath sound prolonged expiration -some wheezing. ABDOMEN: Soft, nontender, liver spleen not palpable, no masses palpable. PSYCH: [Alert and oriented x3; mood and affect anxious . INVESTIGATIONS, reviewed in the clinical context: Creatinine 0.86 Previous testing: White count 11.8 hemoglobin 15.5 platelets 249 potassium 4.6 bun 18 creatinine 1.67 Lactic acid 4.7 Troponin I less than 0.012 Coronavirus P/Cr-not detected EKG tracing personally reviewed by me-normal sinus rhythm, P pulmonale Chest x-ray film personally reviewed by me-no obvious infiltrate. Prominent pulmonary artery Assessment: -Acute severe COPD exacerbation in a current smoker-slow to respond -Acute hypoxic, suspect hypercapnic respiratory failure, POA -Acute metabolic encephalopathy from CO2 narcosis likely on presentation- resolved -Chronic nicotine dependence patient active cigarette smoker -Essential hypertension -Chronic urinary incontinence -Anxiety depression not otherwise specified -Restless leg syndrome started on Mirapex -Acute kidney injury likely ATN and [id number] Plan: Continue nebulized bronchodilators, inhaled and IV steroids. Care was discussed with the patient. Expected patient to be hospital for at least 1-2 days.
[2020-03-09] MEDS: methylPREDNISolone SOD SUCCI 40 MG/ML 1 ML VIAL IV SCH (20:47)
[2020-03-10] MEDS: IPRATROPIUM-ALBUTEROL 3 ML NEB INHALATION SCH ×6 (00:33→20:33)
[2020-03-10] MEDS: methylPREDNISolone SOD SUCCI 40 MG/ML 1 ML VIAL IV SCH ×2 (05:19→12:25)
[2020-03-10] MEDS: PANTOPRAZOLE 40 MG TABLET PO SCH (06:37)
[2020-03-10] MEDS: FORMOTEROL FUMARATE 20 MCG/2 ML NEBU INHALATION SCH ×2 (08:27→20:32)
[2020-03-10] MEDS: BUDESONIDE 1 MG/2 ML NEBU INHALATION SCH ×2 (08:27→20:32)
[2020-03-10] MEDS: ENOXAPARIN 40 MG/0.4 ML SYRINGE SQ SCH (08:57)
[2020-03-10] MEDS: NICOTINE 21MG/24HR PATCH TRANSDERM SCH (08:57)
[2020-03-10] MEDS: PRAMIPEXOLE 0.5 MG TAB PO SCH ×2 (08:58→21:20)
[2020-03-10] MEDS: OLANZapine 10 MG TAB PO SCH (08:58)
[2020-03-10] MEDS: ALPRAZolam 0.5 MG TAB PO SCH ×3 (08:58→21:19)
[2020-03-10] MEDS: ESCITALOPRAM 20 MG TAB PO SCH (08:58)
[2020-03-10] MEDS: METOPROLOL TARTRATE 25 MG TAB PO SCH (08:58)
[2020-03-10] MEDS ORDERED: RX INFO: IV CONTRAST WAS GIVEN 1 EACH MISC MISCELLANE PRN (12:28)
--- NOTE | 2020-03-10 15:38 | CT ---
CT CHEST FOR PULMONARY EMBOLISM. EXAMINATION TYPE: CT angio chest DATE OF EXAM: 03/10/2020 INDICATION: Exacerbation of COPD CT DLP: 254.3 mGycm, Automated exposure control for dose reduction was used. CONTRAST: Patient injected with 100 ml mL of Isovue 370. COMPARISON: 03/16/2013 TECHNIQUE: CT of the chest is performed on a spiral scan at 2 mm thick sections. Study is performed with intravenous contrast timed for evaluation for pulmonary embolism. This will limit additional po rtions of the evaluation. 3-D MIP images reconstructed by the technologist are reviewed on the compu ter in the coronal and sagittal planes. FINDINGS: No persistent filling defects are evident to suggest an acute pulmonary embolism. No mediastinal or hilar adenopathy enlarged by CT criteria is evident. The ascending aorta diameter at the level of the main pulmonary artery is 3.2 cm. The main pulmonary artery diameter at the bifur cation is 2.3 cm. Lung windows are clear. Limited CT section through the upper abdomen are unremarkable. IMPRESSIONS: 1. No acute pulmonary embolism.
--- NOTE | 2020-03-10 15:45 | P.PN ---
Subjective Progress Note Date: 03/10/20 Principal diagnosis: Altered mental status Suspect carbon monoxide poisoning Severe COPD with possible exacerbation History of multiple sclerosis Generalized anxiety disorder Activities smoker one had a half pack per day 03/10/2020, patient seen eval examined during the rounds shortness of breath continued to improve denies any cough or sputum production however patient c ontinued to require 5 L nasal cannula, he may is afebrile, hemodynamically stable, able to decrease oxygen to 91% on 4 L oxygen due to high FiO2 to come and a computed tomography scan of the chest has been done, noted to be negative for pulmonary embolism, findings suggestive of COPD changes 03/09/2020, patient seen eval examined during the rounds labs reviewed medications reviewed care plan discussed, patient is undergoing physical therapy and rehab, is on 5 L oxygen, no chest pain is present awake and alert breathing comfortably, noted that oxygen saturation were lower now compared to before as yesterday patient was on 5 L saturation is 96% today came down to 90% discussed with RN will try to taper down oxygen with frequently monitor oxygen saturation 03/08/2020, patient is awake and alert sitting upright in the bed breathing comfortably remains on 5 L oxygen, denies any chest pain denies any cough or sputum production, scans were daughter at length about sequence of events are slightly disorder breathing and COPD with the risk of exposure to carbon monoxide and to minimize the risk as well This is a 64-year-old female with advanced multiple sclerosis, patient was brought into the hospital after she was found to be unresponsive on medical floor he was cyanotic, patient placed back on BiPAP with slow improvement in clinical condition have diffuse wheezing as well continue snaps treatment was given in the emergency department, subsequently admitted to the floor, patient was evaluated on medical floor she was currently 5 L oxygen she feels that she is back to baseline, denies any chest pain shortness of breath does have some cough, BiPAP is off, data as up been obtained from the patient that she was smoking in the garage according to her 5 cigarettes were smoked after that she went inside the room and passed out, EMS were notified and brought into hospital for further evaluation, her past history significant for multiple sclerosis major depression anxiety disorder, likely severe COPD, hypertension hypertensive cardiovascular disease, she smokes 1-1/2 pack per day every day Objective - Vital Signs Vital signs: Vital Signs Temp 97.9 F 03/10/20 14:00 Pulse 60 03/10/20 14:00 Resp 18 03/10/20 14:00 BP 117/77 03/10/20 14:00 Pulse Ox 91 L 03/10/20 14:00 Intake & Output 03/09/20 03/10/20 03/10/20 18:59 06:59 18:59 Intake Total 960 240 Output Total 200 Balance 760 240 Weight 64.3 kg Intake: Oral 960 240 Output: Urine 200 Other: Voiding Method Bedside Commode Bedside Commode Bedside Commode Diaper Diaper Diaper # Voids 4 1 1 # Bowel Movements 0 - Exam - Constitutional General appearance: average body habitus, cooperative, disheveled, mild distress - EENT Eyes: EOMI, PERRLA Ears: bilateral: normal - Neck Neck: normal ROM Carotids: bilateral: upstroke normal Thyroid: bilateral: normal size - Respiratory Respiratory: bilateral: diminished - Cardiovascular Rhythm: regular Heart sounds: normal: S1, S2 - Gastrointestinal General gastrointestinal: normal bowel sounds, soft - Integumentary Integumentary: decreased turgor, flushed - Neurologic Neurologic: CNII-XII intact - Musculoskeletal Musculoskeletal: gait normal, generalized weakness - Psychiatric Psychiatric: A&O x's 3, appropriate affect, intact judgment & insight - Labs CBC & Chem 7: 03/09/20 14:50 03/09/20 09:36 Assessment and Plan Assessment: Altered mental status carbon monoxide poisoning Severe COPD with possible exacerbation History of multiple sclerosis Generalized anxiety disorder Activities smoker one had a half pack per day Plan: Continue oxygen as we will attempt to wean it down slowly to room air, the scan of the chest reviewed Continue bronchodilators monitor observe patient off of steroids antibiotics smoking cessation counseling and advice also education about carbon monoxide p oisoning also discussed with daughter at length Agree with discharge planning each and may require some supplemental oxygen Further workup and evaluation pending as per clinical response of the patient Time with Patient: Greater than 30
[2020-03-10] MEDS: predniSONE 20 MG TAB PO SCH (18:08)
--- NOTE | 2020-03-10 22:04 | P.PN ---
Progress Note - Text Progress Note Date: 03/10/20 Chief Complaint: Short of breath History of presenting complaint: This is a pleasant 64-year-old patient of visiting physicians Dr. Armstrong. Chronic stable medical conditions include hypertension, multiple sclerosis, anxiety depression, hypertension, urinary incontinence. Long-standing smoker. Daughter is at the bedside. Last 2-3 days patient had getting increasingly short of breath. Increasing wheezing. And out of the house to smoke today came back, and the last she remembers sitting on the sofa. She was found on the carpeted floor. She is very cyanotic and hypoxic and as per the EMS pulse ox was 60%. Patient put on a BiPAP in the ER and patient recovered. And after bronchodilators feeling better. Still wheezing. Has not followed with any doctor. No seizure activity was reported. No chest pain. Admitted with-acute COPD exacerbation, acute hypoxic and hypercapnic respiratory failure, acute metabolic encephalopathy from above. Started on bronchodilators, steroids. Today-patient very anxious to go home. On 5 L of nasal cannula. Discussed with Dr. Burnham from pulmonary. Proceed with CT chest rule out PE. Review of systems: Was done for constitutional, cardiovascular, GI, pulmonary. relevant finding as above Active Medications Albuterol/Ipratropium (Ipratropium-Albuterol 3 Ml Neb) 3 ml INHALATION RT-Q4H PRN PRN Reason: Shortness Of Breath Or Wheezing Last Admin: 03/07/20 11:55 Dose: 3 ml Documented by: Albuterol/Ipratropium (Ipratropium-Albuterol 3 Ml Neb) 3 ml INHALATION RT-Q4H [facility] Last Admin: 03/10/20 20:33 Dose: 3 ml Documented by: Alprazolam (Alprazolam 0.5 Mg Tab) 0.5 mg PO HS PRN PRN Reason: Insomnia Last Admin: 03/08/20 03:21 Dose: 0.5 mg Documented by: Alprazolam (Alprazolam 0.5 Mg Tab) 0.5 mg PO TID [facility] Last Admin: 03/10/20 21:19 Dose: 0.5 mg Documented by: Budesonide (Budesonide 1 Mg/2 Ml Nebu) 1 mg INHALATION RT-BID [facility] Last Admin: 03/10/20 20:32 Dose: 1 mg Documented by: Docusate Sodium (Docusate 100 Mg Cap) 100 mg PO DAILY [facility] Enoxaparin Sodium (Enoxaparin 40 Mg/0.4 Ml Syringe) 40 mg SQ DAILY [facility] Last Admin: 03/10/20 08:57 Dose: 40 mg Documented by: Escitalopram Oxalate (Escitalopram 20 Mg Tab) 20 mg PO DAILY [facility] Last Admin: 03/10/20 08:58 Dose: 20 mg Documented by: Formoterol Fumarate (Formoterol Fumarate 20 Mcg/2 Ml Nebu) 20 mcg INHALATION RT-BID [facility] Last Admin: 03/10/20 20:32 Dose: 20 mcg Documented by: Metoprolol Tartrate (Metoprolol Tartrate 25 Mg Tab) 25 mg PO DAILY [facility] Last Admin: 03/10/20 08:58 Dose: 25 mg Documented by: Miscellaneous Information (Rx Info: Iv Contrast Was Given 1 Each Misc) 1 each MISCELLANE DAILY PRN PRN Reason: Per Protocol Stop: 03/12/20 12:28 Nicotine (Nicotine 21mg/24hr Patch) 1 patch TRANSDERM DAILY [facility] Last Admin: 03/10/20 08:57 Dose: 1 patch Documented by: Olanzapine (Olanzapine 10 Mg Tab) 10 mg PO DAILY [facility] Last Admin: 03/10/20 08:58 Dose: 10 mg Documented by: Ondansetron HCl (Ondansetron Odt 4 Mg Tab) 4 mg PO Q12HR PRN PRN Reason: Nausea Pantoprazole Sodium (Pantoprazole 40 Mg Tablet) 40 mg PO AC-BRKFST [facility] Last Admin: 03/10/20 06:37 Dose: 40 mg Documented by: Pramipexole Dihydrochloride (Pramipexole 0.5 Mg Tab) 0.5 mg PO BID [facility] Last Admin: 03/10/20 21:20 Dose: 0.5 mg Documented by: Prednisone (Prednisone 20 Mg Tab) 60 mg PO DAILY [facility] Last Admin: 03/10/20 18:08 Dose: 60 mg Documented by: Physical examination: VITAL SIGNS: 97.9, 60, 18, 117/77, 91% on 4 L GENERAL: Sitting up in chair, breathing better EYES: Pupils equal. Conjunctiva normal. NECK: JVD not raised; masses not palpable. HEART: First and second heart sounds are normal; no edema. LUNGS: Respiratory rate increased, diminished breath sound prolonged expiration -some wheezing. ABDOMEN: Soft, nontender, liver spleen not palpable, no masses palpable. PSYCH: [Alert and oriented x3; mood and affect anxious . INVESTIGATIONS, reviewed in the clinical context: Chest CT-negative for PE Creatinine 0.86 Previous testing: White count 11.8 hemoglobin 15.5 platelets 249 potassium 4.6 bun 18 creatinine 1.67 Lactic acid 4.7 Troponin I less than 0.012 Coronavirus P/Cr-not detected EKG tracing personally reviewed by me-normal sinus rhythm, P pulmonale Chest x-ray film personally reviewed by me-no obvious infiltrate. Prominent pulmonary artery Assessment: -Acute severe COPD exacerbation in a current improving -Acute hypoxic, suspect hypercapnic respiratory failure, POA on 5 L nasal cannula. -Acute metabolic encephalopathy from CO2 narcosis likely on presentation- resolved -Chronic nicotine dependence patient active cigarette smoker -Essential hypertension -Chronic urinary incontinence -Anxiety depression not otherwise specified -Restless leg syndrome started on Mirapex -Acute kidney injury likely ATN and [id number] Plan: Continue nebulized bronchodilators, inhaled bronchodilators. Switch to by mouth prednisone. Decrease FiO2 to 4 L. Hopefully can be discharged home tomorrow..
[2020-03-10] MEDS: DOCUSATE 100 MG CAP PO SCH (22:59)
[2020-03-11] MEDS: IPRATROPIUM-ALBUTEROL 3 ML NEB INHALATION SCH ×4 (00:43→11:57)
[2020-03-11] MEDS: PANTOPRAZOLE 40 MG TABLET PO SCH (06:31)
[2020-03-11] MEDS: ALPRAZolam 0.5 MG TAB PO PRN (06:33)
[2020-03-11] MEDS: BUDESONIDE 1 MG/2 ML NEBU INHALATION SCH (08:32)
[2020-03-11] MEDS: FORMOTEROL FUMARATE 20 MCG/2 ML NEBU INHALATION SCH (08:32)
[2020-03-11] MEDS: METOPROLOL TARTRATE 25 MG TAB PO SCH (09:23)
[2020-03-11] MEDS: DOCUSATE 100 MG CAP PO SCH (09:23)
[2020-03-11] MEDS: NICOTINE 21MG/24HR PATCH TRANSDERM SCH (09:23)
[2020-03-11] MEDS: ENOXAPARIN 40 MG/0.4 ML SYRINGE SQ SCH (09:23)
[2020-03-11] MEDS: ESCITALOPRAM 20 MG TAB PO SCH (09:23)
[2020-03-11] MEDS: PRAMIPEXOLE 0.5 MG TAB PO SCH (09:23)
[2020-03-11] MEDS: ALPRAZolam 0.5 MG TAB PO SCH (09:23)
[2020-03-11] MEDS: predniSONE 20 MG TAB PO SCH (09:23)
[2020-03-11] MEDS: OLANZapine 10 MG TAB PO SCH (09:24)
[2020-03-11 09:37] VITALS: BP 149/80; RESP 19; TEMP 98.4
--- NOTE | 2020-03-11 09:57 | P.PN ---
Subjective Progress Note Date: 03/11/20 Principal diagnosis: Altered mental status Suspect carbon monoxide poisoning Severe COPD with possible exacerbation History of multiple sclerosis Generalized anxiety disorder Activities smoker one had a half pack per day 03/11/2020, patient seen eval examined during the rounds breathing has been stable patient is now on 3 L nasal cannula oxygen saturation is 92%, denies any chest pain respiratory status remained stable, mental status stable, patient can be discharged home from pulmonary standpoint might need supplemental oxygen at the time of discharge with close monitoring and follow-up in outpatient 03/10/2020, patient seen eval examined during the rounds shortness of breath continued to improve denies any cough or sputum production however patient continued to require 5 L nasal cannula, he may is afebrile, hemodynamically stable, able to decrease oxygen to 91% on 4 L oxygen due to high FiO2 to come and a computed tomography scan of the chest has been done, noted to be negative for pulmonary embolism, findings suggestive of COPD changes 03/09/2020, patient seen eval examined during the rounds labs reviewed medications reviewed care plan discussed, patient is undergoing physical therapy and rehab, is on 5 L oxygen, no chest pain is present awake and alert breathing comfortably, noted that oxygen saturation were lower now compared to before as yesterday patient was on 5 L saturation is 96% today came down to 90% discussed with RN will try to taper down oxygen with frequently monitor oxygen saturation 03/08/2020, patient is awake and alert sitting upright in the bed breathing comfortably remains on 5 L oxygen, denies any chest pain denies any cough or sputum production, scans were daughter at length about sequence of events are slightly disorder breathing and COPD with the risk of exposure to carbon monoxide and to minimize the risk as well This is a 64-year-old female with advanced multiple sclerosis, patient was brought into the hospital after she was found to be unresponsive on medical floor he was cyanotic, patient placed back on BiPAP with slow improvement in clinical condition have diffuse wheezing as well continue snaps treatment was given in the emergency department, subsequently admitted to the floor, patient was evaluated on medical floor she was currently 5 L oxygen she feels that she is back to baseline, denies any chest pain shortness of breath does have some cough, BiPAP is off, data as up been obtained from the patient that she was smoking in the garage according to her 5 cigarettes were smoked after that she w ent inside the room and passed out, EMS were notified and brought into hospital for further evaluation, her past history significant for multiple sclerosis major depression anxiety disorder, likely severe COPD, hypertension hypertensive cardiovascular disease, she smokes 1-1/2 pack per day every day Objective - Vital Signs Vital signs: Vital Signs Temp 98.4 F 03/11/20 08:00 Pulse 80 03/11/20 08:58 Resp 19 03/11/20 08:00 BP 149/80 03/11/20 08:00 Pulse Ox 88 L 03/11/20 08:00 Intake & Output 03/10/20 03/11/20 03/11/20 18:59 06:59 18:59 Intake Total 360 Balance 360 Weight 63.5 kg Intake: Oral 360 Other: Voiding Method Bedside Commode Bedside Commode Diaper Diaper # Voids 1 2 # Bowel Movements 2 - Exam - Constitutional General appearance: average body habitus, cooperative, disheveled, mild distress - EENT Eyes: EOMI, PERRLA Ears: bilateral: normal - Neck Neck: normal ROM Carotids: bilateral: upstroke normal Thyroid: bilateral: normal size - Respiratory Respiratory: bilateral: diminished - Cardiovascular Rhythm: regular Heart sounds: normal: S1, S2 - Gastrointestinal General gastrointestinal: normal bowel sounds, soft - Integumentary Integumentary: decreased turgor, flushed - Neurologic Neurologic: CNII-XII intact - Musculoskeletal Musculoskeletal: gait normal, generalized weakness - Psychiatric Psychiatric: A&O x's 3, appropriate affect, intact judgment & insight - Labs CBC & Chem 7: 03/09/20 14:50 03/09/20 09:36 Assessment and Plan Assessment: Altered mental status, improved significantly carbon monoxide poisoning Severe COPD with possible exacerbation stable with bronchodilators History of multiple sclerosis Generalized anxiety disorder Activities smoker one had a half pack per day Plan: Continue oxygen as we will attempt to wean it down slowly to room air, the scan of the chest reviewed Continue bronchodilators monitor observe patient off of steroids antibiotics smoking cessation counseling and advice also education about carbon monoxide poisoning also discussed with daughter at length Agree with discharge planning each and may require some supplemental oxygen Further workup and evaluation pending as per clinical response of the patient Time with Patient: Greater than 30
[2020-03-11 12:07] VITALS: PULSE 80
--- NOTE | 2020-03-12 21:51 | P.DS ---
Providers Date of admission: 03/06/20 18:05 Expected date of discharge: 03/11/20 Attending physician: Markus Sung Consults: 03/07/20 10:32 Consult Physician Routine Consulting Provider: Daren Smith Consult Reason/Comments: copd Do you want consulting provider notified?: Yes Primary care physician: Mumtaz [facility] Course: Chief Complaint: Short of breath History of presenting complaint: This is a pleasant 64-year-old patient of visiting physicians Dr. Armstrong. Chronic stable medical conditions include hypertension, multiple sclerosis, anxiety depression, hypertension, urinary incontinence. Long-standing smoker. Daughter is at the bedside. Last 2-3 days patient had getting increasingly short of breath. Increasing wheezing. And out of the house to smoke today came back, and the last she remembers sitting on the sofa. She was found on the carpeted floor. She is very cyanotic and hypoxic and as per the EMS pulse ox was 60%. Patient put on a BiPAP in the ER and patient recovered. And after bronchodilators feeling better. Still wheezing. Has not followed with any doctor. No seizure activity was reported. No chest pain. Admitted with-acute COPD exacerbation, acute hypoxic and hypercapnic respiratory failure, acute metabolic encephalopathy from above. Started on bronchodilators, steroids. PE was ruled out. Today-doing better. Oral intake. Fair. Reminded about smoking cessation.. Will be going home on home oxygen. Discussion and discharge planning more than 35 minutes Consultation: Dr. Isa Smith from pulmonary Physical examination: VITAL SIGNS: 98.4, 84, 19, 149/80, 92% on 3 L GENERAL: Sitting up in chair, breathing better EYES: Pupils equal. Conjunctiva normal. NECK: JVD not raised; masses not palpable. HEART: First and second heart sounds are normal; no edema. LUNGS: Respiratory rate increased, diminished breath sound prolonged expiration -some wheezing. ABDOMEN: Soft, nontender, liver spleen not palpable, no masses palpable. PSYCH: [Alert and oriented x3; mood and affect anxious . INVESTIGATIONS, reviewed in the clinical context: Chest CT-negative for PE Creatinine 0.86 Previous testing: White count 11.8 hemoglobin 15.5 platelets 249 potassium 4.6 bun 18 creatinine 1.67 Lactic acid 4.7 Troponin I less than 0.012 Coronavirus P/Cr-not detected EKG tracing personally reviewed by me-normal sinus rhythm, P pulmonale Chest x-ray film personally reviewed by me-no obvious infiltrate. Prominent pulmonary artery Assessment: -Acute severe COPD exacerbation in a current POA -Acute hypoxic, suspect hypercapnic respiratory failure, POA on 4 L nasal cannula. -Acute metabolic encephalopathy from CO2 narcosis likely on presentation- resolved -Chronic nicotine dependence patient active cigarette smoker -Essential hypertension -Chronic urinary incontinence -Anxiety depression not otherwise specified -Restless leg syndrome started on Mirapex -Acute kidney injury likely ATN and [id number] Disposition: Home Patient Condition at Discharge: Stable Plan - Discharge Summary Discharge Rx Participant: No New Discharge Prescriptions: New Ipratropium-Albuterol Nebulize [Duoneb 0.5 mg-3 mg/3 ml Soln] 3 ml INHALATION QID #120 ml Nicotine 21Mg/24Hr Patch [Habitrol] 1 patch TRANSDERM DAILY #14 patch Pramipexole [Mirapex] 0.5 mg PO BID #60 tab predniSONE 10 mg PO DAILY #30 tab Continue Escitalopram [Lexapro] 20 mg PO DAILY Ondansetron Odt [Zofran ODT] 4 mg PO Q12HR PRN PRN Reason: Nausea Acetaminophen Tab [Tylenol] 1,000 mg PO DAILY PRN PRN Reason: Pain ALPRAZolam [Xanax] 0.5 mg PO HS PRN PRN Reason: Insomnia ALPRAZolam [Xanax] 0.5 mg PO TID Budesonide/Formoterol Fumarate [Symbicort 160-4.5 Mcg Inhaler] 1 puff INHALATION RT-BID Omeprazole 20 mg PO DAILY OLANZapine [ZyPREXA] 10 mg PO DAILY Teriflunomide [Aubagio] 7 mg PO DAILY Discontinued Meclizine [Antivert] 25 mg PO TID PRN PRN Reason: DIZZINESS No Action amLODIPine BESYLATE/BENAZEPRIL [Lotrel 10-40 MG] 1 cap PO HS Ibuprofen [Motrin] 800 mg PO Q6H PRN PRN Reason: Pain Metoprolol Tartrate [Lopressor] 25 mg PO DAILY Furosemide [Lasix] 20 mg PO DAILY Discharge Medication List Escitalopram [Lexapro] 20 mg PO DAILY 05/05/15 [History] ALPRAZolam [Xanax] 0.5 mg PO HS PRN 09/06/18 [History] ALPRAZolam [Xanax] 0.5 mg PO TID 09/06/18 [History] Acetaminophen Tab [Tylenol] 1,000 mg PO DAILY PRN 09/06/18 [History] Ibuprofen [Motrin] 800 mg PO Q6H PRN 09/06/18 [History] Ondansetron Odt [Zofran ODT] 4 mg PO Q12HR PRN 09/06/18 [History] amLODIPine BESYLATE/BENAZEPRIL [Lotrel 10-40 MG] 1 cap PO HS 09/06/18 [History] Budesonide/Formoterol Fumarate [Symbicort 160-4.5 Mcg Inhaler] 1 puff INHALATION RT-BID 03/06/20 [History] Furosemide [Lasix] 20 mg PO DAILY 03/06/20 [History] Metoprolol Tartrate [Lopressor] 25 mg PO DAILY 03/06/20 [History] OLANZapine [ZyPREXA] 10 mg PO DAILY 03/06/20 [History] Omeprazole 20 mg PO DAILY 03/06/20 [History] Teriflunomide [Aubagio] 7 mg PO DAILY 03/06/20 [History] Ipratropium-Albuterol Nebulize [Duoneb 0.5 mg-3 mg/3 ml Soln] 3 ml INHALATION QID #120 ml 03/10/20 [Rx] Nicotine 21Mg/24Hr Patch [Habitrol] 1 patch TRANSDERM DAILY #14 patch 03/10/20 [Rx] Pramipexole [Mirapex] 0.5 mg PO BID #60 tab 03/10/20 [Rx] predniSONE 10 mg PO DAILY #30 tab 03/10/20 [Rx] Follow up Appointment(s)/Referral(s): Audra Warren [NON-STAFF] - 1-2 Days (Please call the office on Friday to schedule a follow up appointment ) Mumtaz Armstrong MD [Primary Care Provider] - 1-2 days (please call to make follow up appointment on Friday ) Daren Smith MD [STAFF PHYSICIAN] - 1 Week (Please call the office on Friday to schedule follow up appointment) Patient Instructions/Handouts: How to Stop Smoking (DC), COPD (Chronic Obstructive Pulmonary Disease) (DC) Activity/Diet/Wound Care/Special Instructions: Patient will need home oxygen and a nebulizer at discharge secondary to COPD - ordered through [facility] - [phone] Discharge/Stand Alone Forms: [facility] In The Home Discharge Disposition: HOME SELF-CARE
== END 2020-03-11 15:40 | disposition home health service (06) | DRG 190 ==
LOC: EC 15:45 → 3SCARD 18:05
PROVIDERS: ADMIT Hospitalist; ATTEND Hospitalist
PROC: 5A09557 Assistance with Respiratory Ventilation, Greater than 96 Consecutive Hours, Continuous Positive Airway Pressure (ICD-10-PCS; principal; 2020-03-06)
DX: J44.1 Chronic obstructive pulmonary disease with (acute) exacerbation (principal); J96.01 Acute respiratory failure with hypoxia; J96.02 Acute respiratory failure with hypercapnia; N17.0 Acute kidney failure with tubular necrosis; G93.41 Metabolic encephalopathy; G35 Multiple sclerosis; Z20.828 Contact with and (suspected) exposure to other viral communicable diseases; I11.9 Hypertensive heart disease without heart failure; T58.91XA Toxic effect of carbon monoxide from unspecified source, accidental (unintentional), initial encounter; R32 Unspecified urinary incontinence; F41.8 Other specified anxiety disorders; F41.1 Generalized anxiety disorder; G25.81 Restless legs syndrome; F17.210 Nicotine dependence, cigarettes, uncomplicated; Z71.6 Tobacco abuse counseling; Z79.51 Long term (current) use of inhaled steroids; Z79.899 Other long term (current) drug therapy; Z90.89 Acquired absence of other organs; Z98.890 Other specified postprocedural states
CPT/HCPCS: 36415; 51701; 71045; 71275; 76770; 80048; 80053; 81003; 83605; 83735; 84484; 85025; 85027; 85610; 85730; 87635; 93005; 94640; 94660; 94760; 96374; 96376; 99291

== ENCOUNTER → 2022-07-01 | Outpatient (CLI) | payer MEDICARE ==
--- NOTE | 2022-07-01 15:27 | MM ---
Reason for Exam: Screening (asymptomatic). Last mammogram was performed 5 year(s) and 1 month(s) ago. Patient History: Menarche at age 9. First Full-Term at age 23. Postmenopausal. Maternal grandmother had breast cancer, age 80. Risk Values: Mariah 5 year model risk: 1.6%. NCI Lifetime model risk: 6.2%. Prior Study Comparison: 07/08/2011 Bilateral Screening Mammogram, [facility]. 11/28/2015 Bilateral Screening Mammogram, [facility]. 05/30/2017 Bilateral Screening Mammogram, [facility]. Tissue Density: The breast tissue is heterogeneously dense. This may lower the sensitivity of mammography. Findings: Analyzed By CAD. There is occasional benign-appearing round calcification redemonstrated throughout the bilateral breasts. There is no suspicious new group of microcalcifications or new suspicious mass in either breast. Overall Assessment: Benign, BI-RAD 2 Management: Screening Mammogram of both breasts in 1 year. A clinical breast exam by your physician is recommended on an annual basis and results should be correlated with mammographic findings. Electronically signed and approved by: Jose Raul Howard M.D.
== END | disposition home or self-care (01) ==
LOC: RADMAMWWP 14:43
PROVIDERS: ATTEND Family Medicine
DX: Z12.31 Encounter for screening mammogram for malignant neoplasm of breast (principal); Z78.0 Asymptomatic menopausal state; Z80.3 Family history of malignant neoplasm of breast
CPT/HCPCS: 77063; 77067